=== PATIENT | male | born 1930 | race Caucasian/White ===

== ENCOUNTER 2017-01-30 22:15 | Inpatient (IN) | payer BC ==
--- NOTE | ~2017-01-30 | DS ---
Discharge Summary [place] [id number] [facility] [place]. [address] NAME: JORGE A SANTANA : 30 STATUS : ADM IN [facility]#: [id number] AGE: 87 ADM/REG DATE : 01/30/17 MR#: [id number] REPORT SERV DATE: 02/03/17 DICTATED BY: FREDDIE MIRANDA DATE: 02/03/17 REPORT STATUS : Draft TRANSCRIBED BY: MODL DATE: 02/03/17 ADMISSION DATE: 01/30/2017 DISCHARGE DATE: 02/03/2017 FINAL HOSPITAL DIAGNOSES: 1. Cellulitis. 2. History of arthritis. 3. History of chronic thrombocytopenia. 4. History of pacemaker placement for AV block. CONSULTATIONS: None. PROCEDURES: 1. Arterial ultrasound of lower extremity showing no significant blockage of the deep system. On the right, hyperemic changes suggest infection. The remainder of exam demonstrates no significant stenosis or arterial occlusion. Underlying atherosclerotic changes are however identified and felt to be diffusely present. The distal lower extremities could not be compressed to calculate JOSÉ MIGUEL. 2. Lower extremity venous Doppler showing no evidence of DVT in the right or left lower extremity. CURRENT PHYSICAL FINDINGS AND HPI: Please see dictated H and P by Dr. Qureshi. In brief, the patient is an 87-year-old male, who had injury to the right lower extremity and began developing erythema and suspected infection. Vital signs at time of admission, BP was 150/67, temperature was 98, pulse was 84. LAB WORK: Initial procalcitonin was less than 0.05. BMP was only remarkable for a creatinine of 1.33 which decreased to 1.08 on the . A1c was 5.0. Lactate was 0.9. Initial white count was 6.4. Platelet count was chronically low in the 90-100s. Wound culture grew out MSSA and Klebsiella. Blood culture is negative to date. HOSPITAL COURSE: The patient was admitted. He was started on DVT prophylaxis. Vascular Surgery was consulted. He was placed on Levaquin and vancomycin. Home medications were reviewed and ordered appropriately. Serial labs were followed and reviewed. Ultrasounds were followed and reviewed. Vascular did not feel he needed acute intervention. Pharmacy followed and assisted with antibiotic selection. He was transitioned over to Ceftin which he tolerated well. On the date of discharge, his wound was healing nicely with significant decreased erythema. He was felt stable for discharge. DISPOSITION: Discharged home. Rx is written for cefuroxime 500 b.i.d. to complete a 10-day course. Vascular followup was scheduled for two weeks to reassess any vascular needs at that time. He will follow up with his PCP p.r.n. He is to return if his symptoms worsen. We did discuss with him and his about his history of falls at home. The patient is of advanced age and had several orthopedic problems, but is currently refusing to use a walker or assistive device, but a due caution was recommended. He will continue his home medications which were vitamin C 500 one per day, vitamin D 1000 units daily, multivitamin Discharge Summary [address] [address] NAME: JORGE A SANTANA : 30 STATUS : ADM IN [facility]#: [id number] AGE: 87 ADM/REG DATE : 01/30/17 MR#: [id number] REPORT SERV DATE: 02/03/17 DICTATED BY: FREDDIE MIRANDA DATE: 02/03/17 REPORT STATUS : Draft TRANSCRIBED BY: MODL DATE: 02/03/17 one per day, Aleve p.r.n., and vitamin E 1000 one per day. TLF/MODL Freddie Miranda M.D. / [id number] CC: Magali Mo MD
--- NOTE | ~2017-01-30 | HP ---
History And Physical [facility] [address] [facility] [place]. [address] NAME: JORGE A SANTANA : 30 STATUS : ADM IN [facility]#: [id number] AGE: 87 ADM/REG DATE : 01/30/17 MR#: [id number] REPORT SERV DATE: 01/31/17 DICTATED BY: HANNAH GROSS DATE: 01/30/17 REPORT STATUS : Draft TRANSCRIBED BY: MODL DATE: 01/30/17 DATE OF ADMISSION: 01/30/2017 CHIEF COMPLAINT: Right lower extremity swelling, redness, warmth, superficial wounds that have been going on for about four to five days. HISTORY OF PRESENT ILLNESS: This is a very pleasant 87-year-old gentleman, very poor historian. He has a history of AV block with prior pacemaker, history of degenerative joint disease, osteoarthritis, hypertension, GERD, prior history of nephrolithiasis, history of chronic thrombocytopenia, fatty lever, recurrent falls that he has been presenting today to [facility] accompanied by his after he has been seen by nurse practitioner of Dr. Marie, his orthoped. The patient fell about one week or so ago outside in [employer] while he was working in his garden and he developed some superficial scratch. He used Neosporin for that, but it seems that this wound superficial got progressively worse. He developed for about three to four days of swelling, redness, and some pain, and as a result, he went today to Dr. Marie's office, who has been sent by his nurse practitioner to emergency room. The patient has been evaluated in the emergency room, and after initial evaluation, Hospitalist Service has been asked for admission, further evaluation, and treatment. The patient has had no fever, no chest pain, or shortness of breath. No PND or orthopnea, but he did have pain with palpation as well as warmth and redness that has been going on for the last couple of days. After initial evaluation in the emergency room, Hospitalist Service has been asked for admission, further evaluation, and treatment. PAST MEDICAL HISTORY: Significant for pacemaker placement for AV block, history of prior hypertension, GERD, prior history of nephrolithiasis, chronic thrombocytopenia, history of fatty liver, and duodenitis. PAST SURGICAL HISTORY: Include pacemaker placement, left and right hip replacement, cholecystectomy, appendectomy, small bowel obstruction with resection, right ankle fracture, right arm fracture, pelvic fracture with surgery, and rotator cuff repair. ALLERGIES: THE PATIENT IS ALLERGIC TO PENICILLIN. MEDICATIONS: He takes at home include ascorbic acid, vitamin D, multivitamin, Aleve, and vitamin E. SOCIAL HISTORY: He is not a smoker. He quit 20 years ago. Social alcohol. No IV drugs. FAMILY HISTORY: Significant for heart disease and diabetes. REVIEW OF SYSTEMS: A 14-point review of systems has been obtained and pertinent positive has been listed into the history of present illness. Otherwise, negative except those underlying above. PHYSICAL EXAMINATION: VITAL SIGNS: Currently, the patient is afebrile. Blood pressure 150/67, heart rate 84, History And Physical [address] [address] NAME: JORGE A SANTANA : 30 STATUS : ADM IN [facility]#: [id number] AGE: 87 ADM/REG DATE : 01/30/17 MR#: [id number] REPORT SERV DATE: 01/31/17 DICTATED BY: HANNAH GROSS DATE: 01/30/17 REPORT STATUS : Draft TRANSCRIBED BY: SHREE DATE: 01/30/17 respiratory rate 18, and saturating 97% on room air. GENERAL: He is a very pleasant, well-developed, well-nourished gentleman, in no acute distress. He is alert and oriented x3. He is nonfocal. He follows all commands appropriately. HEENT: Show pupils equal, round, reactive to light. Extraocular movements intact. No JVD. No lymphadenopathy. No thyromegaly appreciated. CHEST: Eval shows bilateral air entry. Clear anteroposterior. No wheezes, crackles, or rhonchi appreciated. CARDIOVASCULAR: He has regular rate and rhythm. S1, S2 positive. No S3, no S4. No murmurs, rubs, or gallops appreciated. ABDOMEN: Soft with positive bowel sounds. Nontender. No guarding. No rebound. EXTREMITIES: No clubbing, cyanosis, or edema. NEUROLOGIC: He is alert and oriented. EXTREMITIES: No clubbing, no cyanosis with right lower extremity erythema, warmth, edema, and evidence of superficial wounds on the right lower extremity. NEUROLOGIC: He is alert and oriented x3. Nonfocal. He follows all his commands appropriately. The patient does have Doppler palpable pulses on the right lower extremity. LABORATORY DATA: Labs from today would include sodium of 141, potassium 4.3, chloride 108, CO2 of 29, BUN 32, creatinine 1.33, glucose is 130. His liver function test shows a total bilirubin of 0.6, alkaline phosphatase 189, ALT 32, AST 47. His lactate is 1.4. His white count is 6.4, hemoglobin 12.2, hematocrit 36.3, and platelets are 102. His blood cultures currently are pending. Leg x-ray does not show any acute abnormalities. ASSESSMENT: This is an 87-year-old gentleman with: 1. Right lower extremity cellulitis. 2. Probable peripheral vascular disease. 3. History of pacemaker secondary to AV block. 4. Hypertension. 5. Gastroesophageal reflux disease. 6. Mild acute kidney injury. 7. Chronic thrombocytopenia. 8. Degenerative joint disease, osteoarthritis. The patient is going to be admitted to Hospitalist Service. We are going to place him on bedrest to IV antibiotics. Check wound Gram stain and culture, blood culture. We are going to check an arterial Doppler ultrasound in the morning. Consult Vascular Surgery. Provide symptomatic pain control as well. 9. Mild acute kidney injury. We are going to provide IV fluids and check a spot urine for sodium, creatinine, osmolality. Check UA, urine cultures, and follow the labs in the morning. 10.History of hypertension. We are going to provide p.r.n. hydralazine as needed. 11.History of gastroesophageal reflux disease. We will place the patient on Protonix. We are going to provide reasonable pain, nausea control as well as GI and DVT prophylaxis, that has been discussed extensively with the patient and the patient's . All the questions have been answered in full. Further workup and recommendation pending above. It is also to note that the patient is going to be followed up by Dr. Sathish Huerta. History And Physical [address] [address] NAME: JORGE A SANTANA : 30 STATUS : ADM IN [facility]#: [id number] AGE: 87 ADM/REG DATE : 01/30/17 MR#: [id number] REPORT SERV DATE: 01/31/17 DICTATED BY: HANNAH GROSS DATE: 01/30/17 REPORT STATUS : Draft TRANSCRIBED BY: MODKaya DATE: 01/30/17 CF/MODL Hannah Gross M.D. / [id number] CC: Magali Bland MD
[2017-01-30 21:45] LABS: BASOPHILS 0.8 %; BASOPHILS ABSOLUTE 0.05 10/3/uL (0.0-0.16); EOSINOPHILS 2.3 %; EOSINOPHILS ABSOLUTE 0.15 10/3/uL (0.0-0.53); ER CBC TAT 0 Hrs 07 Mins; HEMOGLOBIN 12.2 g/dL (13.6-17.8); IMMATURE GRANULOCYTES 0.2 %; IMMATURE GRANULOCYTES ABSOLUTE 0.01 10/3/uL (0.0-0.11); LYMPHOCYTES 26.8 %; LYMPHOCYTES ABSOLUTE 1.72 10/3/uL (0.67-4.30); MEAN CORPUS HGB CONC 33.6 g/dL (32.0-36.0); MEAN CORPUSCULAR HEMOGLOB 32.3 pg (26.0-34.0); MEAN PLATELET VOLUME 9.4 fL (9.2-13.0); MONOCYTES 7.9 %; MONOCYTES ABSOLUTE 0.51 10/3/uL (0.21-1.20); NEUTROPHILS ABSOLUTE 3.98 10/3/uL (2.02-8.40); PLATELET COUNT 102 10/3/uL (150-400); RBC DISTRIBUTION WIDTH 14.7 % (12.0-16.0); RED CELL COUNT 3.78 10/6/uL (4.7-6.1); WHITE BLOOD CELLS 6.4 10/3/uL (4.5-10.5)
[2017-01-30 21:46] LABS: HEMATOCRIT 36.3 % (40.0-51.0); MANUAL DIFF NO %
[2017-01-30 22:00] LABS: A/G RATIO 0.7 (0.7-1.9); ALBUMIN 3.1 G/DL (3.5-5.0); ALKALINE PHOSPHATASE 189 U/L (45-117); BUN (BLOOD UREA NITROGEN) 32 MG/DL (6-23); CALCIUM, SERUM 8.2 MG/DL (8.5-10.4); CHLORIDE, SERUM 108 MMOL/L (96-112); CO2 (CARBON DIOXIDE) 29 MMOL/L (24-34); CREATININE 1.33 MG/DL (0.70-1.30); GFR AFRICAN AMERICAN 55 ML/MIN (>=60); GFR NON AFRICAN AMERICAN 48 ML/MIN (>=60); GLOBULIN 4.2 G/DL (2.5-4.1); GLUCOSE, SERUM 130 MG/DL (60-99); POTASSIUM, SERUM 4.5 MMOL/L (3.5-5.3); SGOT(AST) 47 U/L (5-40); SGPT(ALT) 32 U/L (5-65); SODIUM, SERUM 141 MMOL/L (135-148); TOTAL BILIRUBIN 0.6 MG/DL (0-1.2); TOTAL PROTEIN 7.3 G/DL (6.0-8.5)
[~2017-01-30 22:15] MED LIST: ACID REFLUX; ACID REFLUX PO; ASAB PO; HALF81 PO; MULTIVIT/MIN PO; NEXIUM20 M1 PO; NEXIUM40 PO; POTASSIUM PO; Potassium; TOPXL25 PO; VITAMIN C100 MG PO; VITE1000 PO
[2017-01-30] MEDS ORDERED: VITC500 PO (22:46)
[2017-01-30] MEDS ORDERED: VITE1000 PO (22:46)
[2017-01-30] MEDS ORDERED: VITAMIN D1000 UNI1 PO (22:46)
[2017-01-30] MEDS ORDERED: MULTIVITAMI1 PO (22:47)
[2017-01-30] MEDS ORDERED: ALEVE220 MG PO (22:47)
[2017-01-30 22:48] LABS: PROCALCITONIN <0.05 ng/mL (<0.5)
[2017-01-31 02:27] LABS: BASOPHILS 0.7 %; BASOPHILS ABSOLUTE 0.04 10/3/uL (0.0-0.16); EOSINOPHILS 5.2 %; EOSINOPHILS ABSOLUTE 0.29 10/3/uL (0.0-0.53); HEMATOCRIT 36.5 % (40.0-51.0); HEMOGLOBIN 12.4 g/dL (13.6-17.8); IMMATURE GRANULOCYTES 0.4 %; IMMATURE GRANULOCYTES ABSOLUTE 0.02 10/3/uL (0.0-0.11); LYMPHOCYTES 34.8 %; LYMPHOCYTES ABSOLUTE 1.93 10/3/uL (0.67-4.30); MEAN CORPUSCULAR HEMOGLOB 32.5 pg (26.0-34.0); MEAN CORPUSCULAR VOLUME 95.5 fL (80-100); MEAN PLATELET VOLUME 9.8 fL (9.2-13.0); MONOCYTES 9.7 %; MONOCYTES ABSOLUTE 0.54 10/3/uL (0.21-1.20); NEUTROPHILS 49.2 %; NEUTROPHILS ABSOLUTE 2.73 10/3/uL (2.02-8.40); PLATELET COUNT 95 10/3/uL (150-400); RBC DISTRIBUTION WIDTH 14.5 % (12.0-16.0); RED CELL COUNT 3.82 10/6/uL (4.7-6.1); WHITE BLOOD CELLS 5.6 10/3/uL (4.5-10.5)
[2017-01-31 02:28] LABS: MANUAL DIFF NO %
[2017-01-31 02:33] LABS: INTERNATIONAL NORMAL RATI 1.3 UNITS (-); PARTIAL THROMBO TIME 32.3 SEC (22.5-37.2)
[2017-01-31 02:50] LABS: A/G RATIO 0.8 (0.7-1.9); ALKALINE PHOSPHATASE 180 U/L (45-117); BUN (BLOOD UREA NITROGEN) 30 MG/DL (6-23); CALCIUM, SERUM 8.2 MG/DL (8.5-10.4); CHLORIDE, SERUM 109 MMOL/L (96-112); CO2 (CARBON DIOXIDE) 28 MMOL/L (24-34); CREATININE 1.17 MG/DL (0.70-1.30); FREE T4 1.15 NG/DL (0.76-1.46); GFR AFRICAN AMERICAN 65 ML/MIN (>=60); GFR NON AFRICAN AMERICAN 56 ML/MIN (>=60); GLOBULIN 3.9 G/DL (2.5-4.1); GLUCOSE, SERUM 92 MG/DL (60-99); PHOSPHORUS, SERUM 2.5 MG/DL (2.5-4.5); POTASSIUM, SERUM 4.1 MMOL/L (3.5-5.3); SGOT(AST) 43 U/L (5-40); SGPT(ALT) 33 U/L (5-65); SODIUM, SERUM 145 MMOL/L (135-148); TOTAL BILIRUBIN 0.4 MG/DL (0-1.2); TOTAL PROTEIN 6.9 G/DL (6.0-8.5)
[2017-01-31 03:31] LABS: PROCALCITONIN <0.05 ng/mL (<0.5)
[2017-01-31 05:52] LABS: CREATININE, URINE 8.6 MG/DL
[2017-02-02 06:34] LABS: BASOPHILS 0.5 %; BASOPHILS ABSOLUTE 0.03 10/3/uL (0.0-0.16); EOSINOPHILS 4.3 %; EOSINOPHILS ABSOLUTE 0.25 10/3/uL (0.0-0.53); HEMATOCRIT 34.9 % (40.0-51.0); HEMOGLOBIN 11.9 g/dL (13.6-17.8); IMMATURE GRANULOCYTES 0.5 %; IMMATURE GRANULOCYTES ABSOLUTE 0.03 10/3/uL (0.0-0.11); LYMPHOCYTES 33.8 %; LYMPHOCYTES ABSOLUTE 1.96 10/3/uL (0.67-4.30); MEAN CORPUS HGB CONC 34.1 g/dL (32.0-36.0); MEAN CORPUSCULAR HEMOGLOB 32.3 pg (26.0-34.0); MEAN CORPUSCULAR VOLUME 94.8 fL (80-100); MEAN PLATELET VOLUME 10.2 fL (9.2-13.0); MONOCYTES 10.3 %; NEUTROPHILS 50.6 %; NEUTROPHILS ABSOLUTE 2.93 10/3/uL (2.02-8.40); PLATELET COUNT 90 10/3/uL (150-400); RBC DISTRIBUTION WIDTH 14.8 % (12.0-16.0); RED CELL COUNT 3.68 10/6/uL (4.7-6.1); WHITE BLOOD CELLS 5.8 10/3/uL (4.5-10.5)
[2017-02-02 06:35] LABS: MANUAL DIFF NO %
[2017-02-02 06:47] LABS: CALCIUM, SERUM 8.3 MG/DL (8.5-10.4); CHLORIDE, SERUM 111 MMOL/L (96-112); CREATININE 1.08 MG/DL (0.70-1.30); GFR AFRICAN AMERICAN 71 ML/MIN (>=60); GFR NON AFRICAN AMERICAN 61 ML/MIN (>=60); GLUCOSE, SERUM 91 MG/DL (60-99); POTASSIUM, SERUM 4.2 MMOL/L (3.5-5.3); SODIUM, SERUM 143 MMOL/L (135-148)
[2017-02-02 06:48] LABS: BUN (BLOOD UREA NITROGEN) 26 MG/DL (6-23); CO2 (CARBON DIOXIDE) 23 MMOL/L (24-34)
[2017-02-03] MEDS ORDERED: CEFT5 PO (12:47)
[2017-05-03] MEDS ORDERED: B COMPLETE PO (20:29)
[2017-05-03] MEDS ORDERED: VITAMIN D31000 UNIT PO (20:30)
[2017-05-03] MEDS ORDERED: VITC500 PO (20:30)
[2017-05-03] MEDS ORDERED: VITE1000 PO (20:30)
[2017-05-09] MEDS ORDERED: BACTRIM DS1 TAB PO ×2 (10:57→12:41)
== END 2017-02-03 12:55 | disposition home or self-care (01) | DRG 603 ==
LOC: ER 22:15 → 4SO 23:49
PROVIDERS: Internal Medicine; Nurse Practitioner
DX: L03.115 Cellulitis of right lower limb (principal); N17.9 Acute kidney failure, unspecified; D69.6 Thrombocytopenia, unspecified; K76.0 Fatty (change of) liver, not elsewhere classified; M19.90 Unspecified osteoarthritis, unspecified site; Z95.0 Presence of cardiac pacemaker; I10 Essential (primary) hypertension; K21.9 Gastro-esophageal reflux disease without esophagitis; Z91.81 History of falling; Z87.891 Personal history of nicotine dependence
CPT/HCPCS: 71010; 73590-RT; 80048; 80053; 82570; 83036; 83605; 83615; 83735; 83935; 84100; 84145; 84439; 84443; 85025; 85610; 85730; 87040; 87070; 87077; 87186; 87205; 93925; 93970; 96374; 99284; A9270-GY; G0378; J0690; J1956; J3370